=== PATIENT | male | born 1955 | race Caucasian/White ===

== ENCOUNTER 2019-09-13 16:04 | Inpatient (IN) | payer MEDICAID, MEDICARE, OTHER ==
[~2019-09-13] VITALS: Ht 180.3 cm; Wt 80.0 kg
[~2019-09-13 16:04] MED LIST: ASPI-611 PO; DOCU-329 PO; PRIM50TA31 PO; QUET400T PO; TIOT18CA7 IH; flomax PO
[2019-09-13] MEDS ORDERED: methylPREDNISolone sod succ 125mg/2ml vial IV ONE (16:20)
[2019-09-13] MEDS ORDERED: albuterol 2.5 MG/3 ML nebule CONTNEB PRN (16:20)
[2019-09-13] MEDS ORDERED: normal saline 1000ML IV soln IV ONE (16:20)
[2019-09-13] MEDS ORDERED: azithromycin/NS 500mg/250ml 250 ML IV ONE (16:40)
[2019-09-13] MEDS ORDERED: CefTRIAXone 2gm/D5W 50ml 50 ML IV ONE (16:40)
[2019-09-13 16:59] LABS: BASOPHILS # (AUTO) 0.1 X10'3 (0-0.2); BASOPHILS % (AUTO) 0.7 % (0-1); EOSINOPHILS # (AUTO) 0.3 X10'3 (0-0.9); EOSINOPHILS % (AUTO) 2.1 % (0-6); HEMATOCRIT 39.6 % (42.0-52.0); HEMOGLOBIN 13.2 g/dl (14.0-17.9); LYMPHOCYTES # (AUTO) 1.8 X10'3 (1.1-4.8); LYMPHOCYTES % (AUTO) 11.8 % (21-51); MEAN CORPUSCULAR HEMOGLOBIN 31.1 PG (27.0-31.0); MEAN CORPUSCULAR HGB CONC 33.4 g/dL (33.0-36.5); MEAN PLATELET VOLUME 8.8 FL (7.4-10.4); MONOCYTES # (AUTO) 1.4 X10'3 (0-0.9); NEUTROPHILS # (AUTO) 11.7 X10'3 (1.8-7.7); NEUTROPHILS % (AUTO) 76.4 % (42-75); PLATELET COUNT 213 X10'3 (140-440); RED BLOOD COUNT 4.26 X10'6 (4.70-6.10); RED CELL DISTRIBUTION WIDTH 13.9 % (11.5-14.5); WHITE BLOOD COUNT 15.3 X10'3 (4.5-11.0)
[2019-09-13 17:20] LABS: ANION GAP 7 (8-16); BILIRUBIN,TOTAL 0.3 MG/DL (0.1-1.0); BLOOD UREA NITROGEN 12 MG/DL (7-18); CALCIUM 8.4 MG/DL (8.5-10.1); CHLORIDE 104 MMOL/L (99-107); CREATININE 0.63 MG/DL (0.60-1.10); GLUCOSE 93 MG/DL (70-104); POTASSIUM 4.1 MMOL/L (3.5-5.1); SODIUM 140 MMOL/L (135-145); TOTAL CARBON DIOXIDE 29.1 MMOL/L (24-32); eGFR > 90 ML/MIN
[2019-09-13 17:21] LABS: ALANINE AMINOTRANSFERASE 21 U/L (12-78); ALBUMIN 2.9 G/DL (3.4-5.0); ALBUMIN/GLOBULIN RATIO 0.7 (1.1-1.5); ALKALINE PHOSPHATASE 91 IU/L (46-116); ASPARTATE AMINO TRANSFERASE 19 U/L (10-37)
[2019-09-13] MEDS ORDERED: ipratropium/albuterol 3ml nebule NEB ONE (17:40)
[2019-09-13] MEDS ORDERED: TRAZ-251 PO (17:53)
[2019-09-13] MEDS ORDERED: PRED10TA23 PO ×2 (17:53)
[2019-09-13] MEDS ORDERED: QUET300T19 PO (17:53)
[2019-09-13 17:55] LABS: ABG BASE EXCESS -0.6 mmol/L (-2.0-3.0); ABG HCO3 24.1 mmol/L (22.0-26.0); ABG OXYGEN SATURATION 89.8 % (95-98); ABG PCO2 (T) 40.1 mmHg (35.0-45.0); ABG PH (T) 7.397 (7.350-7.450); ABG PO2 (T) 55.1 mmHg (83-108); ALLEN'S TEST Positive; FMetHb 0.2 % (0.3-1.12); FO2Hb 88.7 % (94-100); TOTAL HEMOGLOBIN 13.9 G/dl (14.0-17.9)
--- NOTE | 2019-09-13 18:05 | NUR ---
DR. HUERTAS, HOSPITALIST AT THE BEDSIDE AND VERBALLY TOLD NURSE TO HOLD LAST LITER OF NS BOLUS (BAG 3 . ZITHROMAX IVPB IN PROGRESS AT THIS TIME.
[2019-09-13] MEDS ORDERED: potassium Cl 20 mEq SR tablet PO PRN ×2 (18:15)
[2019-09-13] MEDS ORDERED: magnesium Cl slow-release 64mg tablet PO PRN (18:15)
[2019-09-13] MEDS ORDERED: mag hydrox/Alum hydrox/simeth 30ml oral suspension PO PRN (18:15)
[2019-09-13] MEDS ORDERED: potassium CL 10mEq/100ml bag 100 ML IV PRN ×2 (18:15)
[2019-09-13] MEDS ORDERED: normal saline 1000ml 1,000 ML IV ONE (18:15)
[2019-09-13] MEDS ORDERED: ondansetron/PF 4mg/2ml inj IV PRN (18:15)
[2019-09-13] MEDS ORDERED: magnesium 2GM in 50ml NS 50 ML IV PRN (18:15)
[2019-09-13] MEDS ORDERED: acetaminophen 325mg tablet PO PRN (18:15)
[2019-09-13] MEDS ORDERED: magnesium hydroxide 30ml (MOM) UD suspension PO PRN (18:15)
[2019-09-13] MEDS ORDERED: magnesium 4gm in 100ml NS 100 ML IV PRN (18:15)
--- NOTE | 2019-09-13 19:36 | NUR ---
pt belongings: upper&lwr dentures, shirt, sweat pants, undies, socks, slippers, glasses w/ case, cell phone (no board certified family physician)
[2019-09-13] MEDS ORDERED: ipratropium/albuterol 3ml nebule NEB PRN (19:45)
[2019-09-13] MEDS: acetaminophen 325mg tablet PO PRN (19:45)
[2019-09-13] MEDS ORDERED: traZODone 50mg tablet PO PRN (19:45)
[2019-09-13] MEDS: methylPREDNISolone sod succ 125mg/2ml vial IV SCH (20:00)
[2019-09-13] MEDS: lactobacillus rhamnosus 10,000 MMU CELLS/CAPSULE PO SCH (20:01)
--- NOTE | 2019-09-13 20:47 | NUR ---
Attempted to call report to bedside RN. Per Surgical special agent in charge, they will call this service writer back in 10mins.
[2019-09-13 21:00] VITALS: BP 118/64
[2019-09-13] MEDS: quetiapine 100mg tablet PO SCH (21:38)
[2019-09-13] MEDS: benzonatate 100mg capsule PO PRN (22:53)
[2019-09-13] MEDS: HYDROcodone/acetaminophen 5mg/325mg tablet PO PRN (22:54)
[2019-09-13] MEDS: ipratropium/albuterol 3ml nebule NEB SCH (23:48)
[2019-09-14] VITALS: BP 102/61
[2019-09-14] MEDS: ipratropium/albuterol 3ml nebule NEB SCH ×6 (03:11→23:39)
--- NOTE | 2019-09-14 06:20 | NUR ---
Patient in room [facility]. I have received report from OSMAN Shelley and had the opportunity to ask questions and assume patient care.
[2019-09-14 06:25] LABS: BASOPHILS % (AUTO) 0.3 % (0-1); EOSINOPHILS % (AUTO) 0 % (0-6); HEMATOCRIT 38.2 % (42.0-52.0); HEMOGLOBIN 12.7 g/dl (14.0-17.9); LYMPHOCYTES # (AUTO) 0.6 X10'3 (1.1-4.8); LYMPHOCYTES % (AUTO) 3.9 % (21-51); MEAN CORPUSCULAR HEMOGLOBIN 30.9 PG (27.0-31.0); MEAN CORPUSCULAR HGB CONC 33.2 g/dL (33.0-36.5); MEAN CORPUSCULAR VOLUME 93.3 FL (78-98); MEAN PLATELET VOLUME 9.8 FL (7.4-10.4); MONOCYTES # (AUTO) 0.6 X10'3 (0-0.9); MONOCYTES % (AUTO) 3.7 % (2-12); NEUTROPHILS # (AUTO) 14.1 X10'3 (1.8-7.7); NEUTROPHILS % (AUTO) 92.1 % (42-75); PLATELET COUNT 193 X10'3 (140-440); RED CELL DISTRIBUTION WIDTH 14.1 % (11.5-14.5); WHITE BLOOD COUNT 15.3 X10'3 (4.5-11.0)
[2019-09-14 06:30] VITALS: BP 115/62
[2019-09-14 06:37] LABS: ALBUMIN 2.6 G/DL (3.4-5.0); ANION GAP 6 (8-16); BLOOD UREA NITROGEN 13 MG/DL (7-18); CALCIUM 7.9 MG/DL (8.5-10.1); CHLORIDE 105 MMOL/L (99-107); CREATININE 0.62 MG/DL (0.60-1.10); GLUCOSE 153 MG/DL (70-104); MAGNESIUM 1.9 MG/DL (1.5-2.4); POTASSIUM 4.1 MMOL/L (3.5-5.1); SODIUM 139 MMOL/L (135-145); TOTAL CARBON DIOXIDE 28.5 MMOL/L (24-32); eGFR > 90 ML/MIN
--- NOTE | 2019-09-14 07:03 | NUR ---
Problems reprioritized. Patient report given, questions answered & plan of care reviewed with ACOSTA. Addendum: 09/14/19 at 0704 by Mauricio Fowler RN Amended: Links added.
--- NOTE | 2019-09-14 07:04 | NUR ---
Patient in room [facility]. I have received report from OSMAN Shelley and had the opportunity to ask questions and assume patient care.
[2019-09-14] MEDS: K and/or MAG REPLACEMENT MC SCH (07:43)
[2019-09-14] MEDS ORDERED: nicotine 14mg patch - 24hr TD SCH (08:00)
[2019-09-14] MEDS: methylPREDNISolone sod succ 125mg/2ml vial IV SCH (08:35)
[2019-09-14] MEDS: azithromycin 250mg tablet PO SCH (08:35)
[2019-09-14] MEDS: lactobacillus rhamnosus 10,000 MMU CELLS/CAPSULE PO SCH ×2 (08:36→20:41)
[2019-09-14] MEDS: enoxaparin 40mg/0.4ml syringe SQ SCH (08:38)
--- NOTE | 2019-09-14 09:16 | NUR ---
Student Medication Administration: For this medication-pass time frame, all medication were reviewed, dispensed, administered and documented per hospital policy by sridevi Silva.
[2019-09-14] MEDS: CefTRIAXone 2gm/D5W 50ml 50 ML IV SCH (09:19)
[2019-09-14 11:00] VITALS: BP 136/61
--- NOTE | 2019-09-14 11:53 | NUR ---
Problems reprioritized. Patient report given, questions answered & plan of care reviewed with OSMAN Mckenzie.
--- NOTE | 2019-09-14 11:58 | NUR ---
Student documentation: I have reviewed and agree with all interventions, assessments performed and documented by Sihra, nursing secretary.
[2019-09-14 12:05] VITALS: BP 124/61
[2019-09-14] MEDS: acetaminophen 325mg tablet PO PRN (12:39)
--- NOTE | 2019-09-14 17:10 | NUR ---
reviewed student nurse charting
--- NOTE | 2019-09-14 18:20 | NUR ---
Patient in room [facility]. I have received report from OSMAN Hernandez and had the opportunity to ask questions and assume patient care.
--- NOTE | 2019-09-14 18:35 | NUR ---
Patient in room [facility]. I have received report from OSMAN Mckenzie and had the opportunity to ask questions and assume patient care.
--- NOTE | 2019-09-14 18:45 | NUR ---
Problems reprioritized. Patient report given, questions answered & plan of care reviewed with Magali Rosales RN & Cori RN.
[2019-09-14 20:00] VITALS: BP 125/59
[2019-09-14] MEDS: quetiapine 100mg tablet PO SCH (20:42)
[2019-09-15] VITALS: BP 106/47
[2019-09-15] MEDS: benzonatate 100mg capsule PO PRN (02:35)
[2019-09-15] MEDS: HYDROcodone/acetaminophen 5mg/325mg tablet PO PRN ×3 (02:38→20:47)
[2019-09-15] MEDS: ipratropium/albuterol 3ml nebule NEB SCH ×6 (03:20→22:47)
[2019-09-15 05:19] LABS: BASOPHILS # (AUTO) 0.1 X10'3 (0-0.2); BASOPHILS % (AUTO) 0.5 % (0-1); EOSINOPHILS % (AUTO) 0.3 % (0-6); HEMATOCRIT 36.1 % (42.0-52.0); LYMPHOCYTES # (AUTO) 3.2 X10'3 (1.1-4.8); LYMPHOCYTES % (AUTO) 18.4 % (21-51); MEAN CORPUSCULAR HGB CONC 33.2 g/dL (33.0-36.5); MEAN CORPUSCULAR VOLUME 93.3 FL (78-98); MEAN PLATELET VOLUME 9.7 FL (7.4-10.4); MONOCYTES # (AUTO) 1.5 X10'3 (0-0.9); MONOCYTES % (AUTO) 8.3 % (2-12); NEUTROPHILS # (AUTO) 12.8 X10'3 (1.8-7.7); NEUTROPHILS % (AUTO) 72.5 % (42-75); PLATELET COUNT 193 X10'3 (140-440); RED BLOOD COUNT 3.87 X10'6 (4.70-6.10); RED CELL DISTRIBUTION WIDTH 13.9 % (11.5-14.5); WHITE BLOOD COUNT 17.6 X10'3 (4.5-11.0)
[2019-09-15 05:22] LABS: ALBUMIN 2.4 G/DL (3.4-5.0); ANION GAP 2 (8-16); BLOOD UREA NITROGEN 9 MG/DL (7-18); BUN/CREATININE RATIO 12.9 (5.4-32.0); CHLORIDE 107 MMOL/L (99-107); GLUCOSE 91 MG/DL (70-104); MAGNESIUM 1.8 MG/DL (1.5-2.4); POTASSIUM 3.8 MMOL/L (3.5-5.1); SODIUM 141 MMOL/L (135-145); TOTAL CARBON DIOXIDE 31.8 MMOL/L (24-32); eGFR > 90 ML/MIN
[2019-09-15 06:30] VITALS: BP 107/64
--- NOTE | 2019-09-15 06:45 | NUR ---
Patient in room [facility]. I have received report from OSMAN Persaud and had the opportunity to ask questions and assume patient care.
[2019-09-15] MEDS: K and/or MAG REPLACEMENT MC SCH (06:48)
[2019-09-15] MEDS ORDERED: predniSONE 20 mg tablet PO SCH (08:00)
[2019-09-15] MEDS: azithromycin 250mg tablet PO SCH (09:20)
[2019-09-15] MEDS: lactobacillus rhamnosus 10,000 MMU CELLS/CAPSULE PO SCH ×2 (09:21→20:46)
[2019-09-15] MEDS: enoxaparin 40mg/0.4ml syringe SQ SCH (09:22)
[2019-09-15] MEDS: CefTRIAXone 2gm/D5W 50ml 50 ML IV SCH (09:24)
[2019-09-15 11:00] VITALS: BP 132/82
--- NOTE | 2019-09-15 11:52 | NUR ---
Student Medication Administration: For this medication-pass time frame, all medication were reviewed, dispensed, administered and documented per hospital policy by sridevi Jones.
--- NOTE | 2019-09-15 11:53 | NUR ---
Student documentation: I have reviewed and agree with all interventions, assessments performed and documented by Karen, clinical nursing instructor.
--- NOTE | 2019-09-15 11:58 | NUR ---
Problems reprioritized. Patient report given, questions answered & plan of care reviewed with Magaly RN.
[2019-09-15 15:00] VITALS: BP_SYST 133; BP_SYST 141; BP_SYST 175; BP_DIAS 67; BP_DIAS 70; BP_DIAS 71
[2019-09-15] MEDS ORDERED: normal saline 1000ml 1,000 ML IV ONE (15:55)
[2019-09-15] MEDS: methylPREDNISolone sod succ 125mg/2ml vial IV SCH ×2 (16:04→23:27)
--- NOTE | 2019-09-15 17:44 | NUR ---
reviewed student nurse charting
--- NOTE | 2019-09-15 18:20 | NUR ---
Problems reprioritized. Patient report given, questions answered & plan of care reviewed with Kimberly Rosales RN.
[2019-09-15 20:00] VITALS: BP 153/68
[2019-09-15] MEDS: quetiapine 100mg tablet PO SCH (20:45)
[2019-09-16] VITALS: BP 100/47
[2019-09-16] MEDS: ipratropium/albuterol 3ml nebule NEB SCH ×3 (02:29→10:51)
[2019-09-16 05:49] LABS: BASOPHILS % (AUTO) 0.2 % (0-1); EOSINOPHILS % (AUTO) 0 % (0-6); HEMATOCRIT 38.5 % (42.0-52.0); HEMOGLOBIN 12.7 g/dl (14.0-17.9); LYMPHOCYTES # (AUTO) 0.9 X10'3 (1.1-4.8); LYMPHOCYTES % (AUTO) 6.8 % (21-51); MEAN CORPUSCULAR HEMOGLOBIN 30.8 PG (27.0-31.0); MEAN CORPUSCULAR HGB CONC 33.1 g/dL (33.0-36.5); MEAN CORPUSCULAR VOLUME 93.1 FL (78-98); MEAN PLATELET VOLUME 9.6 FL (7.4-10.4); MONOCYTES # (AUTO) 0.3 X10'3 (0-0.9); MONOCYTES % (AUTO) 2.4 % (2-12); NEUTROPHILS # (AUTO) 12.3 X10'3 (1.8-7.7); NEUTROPHILS % (AUTO) 90.6 % (42-75); PLATELET COUNT 210 X10'3 (140-440); RED BLOOD COUNT 4.13 X10'6 (4.70-6.10); RED CELL DISTRIBUTION WIDTH 14.2 % (11.5-14.5); WHITE BLOOD COUNT 13.6 X10'3 (4.5-11.0)
[2019-09-16 05:57] LABS: ALBUMIN 2.6 G/DL (3.4-5.0); ANION GAP 7 (8-16); BLOOD UREA NITROGEN 8 MG/DL (7-18); BUN/CREATININE RATIO 12.5 (5.4-32.0); CALCIUM 8.5 MG/DL (8.5-10.1); CHLORIDE 103 MMOL/L (99-107); CREATININE 0.64 MG/DL (0.60-1.10); GLUCOSE 148 MG/DL (70-104); MAGNESIUM 1.8 MG/DL (1.5-2.4); SODIUM 140 MMOL/L (135-145); eGFR > 90 ML/MIN
--- NOTE | 2019-09-16 06:48 | NUR ---
Problems reprioritized. Patient report given, questions answered & plan of care reviewed with OSMAN Day.
[2019-09-16 07:00] VITALS: BP 122/63
--- NOTE | 2019-09-16 07:17 | NUR ---
Patient in room [facility]. I have received report from MARITZA BREWER and had the opportunity to ask questions and assume patient care.
[2019-09-16] MEDS: methylPREDNISolone sod succ 125mg/2ml vial IV SCH (07:41)
[2019-09-16] MEDS: CefTRIAXone 2gm/D5W 50ml 50 ML IV SCH (07:51)
[2019-09-16] MEDS: lactobacillus rhamnosus 10,000 MMU CELLS/CAPSULE PO SCH (07:52)
[2019-09-16] MEDS: azithromycin 250mg tablet PO SCH (07:52)
[2019-09-16] MEDS: enoxaparin 40mg/0.4ml syringe SQ SCH (07:59)
[2019-09-16 08:00] VITALS: BP_SYST 114; BP_SYST 126; BP_SYST 128; BP_DIAS 64; BP_DIAS 71; BP_DIAS 72
[2019-09-16] MEDS: K and/or MAG REPLACEMENT MC SCH (08:00)
[2019-09-16] MEDS ORDERED: LEVO750T21 PO (11:01)
[2019-09-16] MEDS ORDERED: GUAI600T45 PO (11:01)
--- NOTE | 2019-09-16 14:36 | NUR ---
patient up and about wwalked with PT without o2 sat 94%, patient seen by Dr Lopez is for discharge. All DC instructions given to patient . patient DC home via private car with family member in stable condition. [id number]
== END 2019-09-16 13:01 | disposition home or self-care (01) | DRG 193 ==
LOC: ER 16:06 → ED HOLD 20:56 → SUR 3N 21:00
PROVIDERS: ADMIT Hospitalist; ATTEND Internal Medicine
DX: J18.9 Pneumonia, unspecified organism (principal); J96.21 Acute and chronic respiratory failure with hypoxia; J44.1 Chronic obstructive pulmonary disease with (acute) exacerbation; J44.0 Chronic obstructive pulmonary disease with (acute) lower respiratory infection; F32.9 Major depressive disorder, single episode, unspecified; F41.9 Anxiety disorder, unspecified; J20.9 Acute bronchitis, unspecified; E11.9 Type 2 diabetes mellitus without complications; F17.200 Nicotine dependence, unspecified, uncomplicated; K21.9 Gastro-esophageal reflux disease without esophagitis; Z79.899 Other long term (current) drug therapy; Z99.81 Dependence on supplemental oxygen; Z88.0 Allergy status to penicillin
CPT/HCPCS: 36415; 36600; 71045; 80048; 80053; 82803; 82948; 83605; 83735; 83880; 84145; 85018; 85025; 87040; 87081; 93005; 94640; 94667; 94760; 96365; 96375; 97112; 97161; 97530; 99291; G0378; J0456; J0696; J1650; J2930; J7030; J7512